=== PATIENT | female | born 1965 | race Caucasian/White ===

== ENCOUNTER → 2017-06-18 | Outpatient (CLI) | payer BC ==
[~2017-06-18] MED LIST: ALPR0.25 PO; CYCL-259 PO; FLUO40CA9 PO; HYDR-3237 PO; MONT10TA6 PO; TRAM-47 PO; ZOLP10TA PO
[2017-06-18 12:22] LABS: HEMATOCRIT 44.6 % (34.6-47.8); HEMOGLOBIN 15.2 g/dL (11.7-16.4); WHITE BLOOD COUNT 6.7 x10^3/uL (3.4-10)
[2017-06-18 12:37] LABS: BLOOD UREA NITROGEN 18 mg/dL (7-18)
[2017-06-18 12:43] LABS: ASPARTATE AMINO TRANSFERASE 20 U/L (15-37)
[2017-06-18 13:47] LABS: HIV 1&2 ANTIBODY SCREEN Nonreactive (Nonreactive); HIV-1 p24 ANTIGEN Nonreactive (Nonreactive)
== END | disposition home or self-care (01) ==
LOC: STAR 11:24
PROVIDERS: ATTEND Orthopaedic Surgery Orthopaedic Surgery of the Spine
DX: Z01.818 Encounter for other preprocedural examination (principal); M53.2X6 Spinal instabilities, lumbar region; M48.06 Spinal stenosis, lumbar region; R79.1 Abnormal coagulation profile
CPT/HCPCS: 36415; 71020; 80053; 80074; 81001; 85025; 85610; 85651; 85730; 86703; 87086; 87899; 93005; G0435

== ENCOUNTER 2017-06-29 07:30 | Inpatient (IN) | payer BC ==
[2017-06-18 11:47] VITALS: BP 109/79
[~2017-06-29] VITALS: Ht 170.2 cm; Wt 63.2 kg
[2017-07-06] MEDS ORDERED: LIDOCAINE/PF 1%, 30ML ONE (06:49)
[2017-07-06] MEDS ORDERED: GENTAMICIN 80 MG/2 ML ONE ×2 (06:49→10:30)
[2017-07-06] MEDS ORDERED: BUPIVACAINE/PF 0.5% ONE (06:49)
[2017-07-06] MEDS ORDERED: THROMBIN 5,000 UNIT VIAL TP ONE (06:49)
[2017-07-06] MEDS ORDERED: VANCOMYCIN 1,000 MG ONE (06:50)
[2017-07-06] MEDS ORDERED: morphine SULFATE/PF 1 MG/ML, 10ML ONE (06:50)
[2017-07-06] MEDS ORDERED: BACITRACIN 50,000 UNIT ONE (06:50)
[2017-07-06] MEDS ORDERED: FENTANYL PF 100 MCG/2ML ONE ×4 (06:50→16:38)
[2017-07-06] MEDS ORDERED: EPINEPHRINE 1 MG/ML, 1ML ONE (06:50)
[2017-07-06] MEDS ORDERED: LACTATED RINGERS 1,000 ML IV SCH (08:42)
[2017-07-06] MEDS ORDERED: GABAPENTIN PO (08:47)
[2017-07-06] MEDS ORDERED: ALBUTEROL INHALER INH (08:47)
[2017-07-06] MEDS ORDERED: LIDOCAINE 1%, 2ML SQ PRN (09:00)
[2017-07-06 09:24] LABS: HCG UR OBC PASS
[2017-07-06] MEDS ORDERED: HEPARIN 1,000 UNITS/ML, 30ML ONE (10:10)
[2017-07-06] MEDS ORDERED: PHENYLEPHRINE 10 MG/ML ONE (10:30)
[2017-07-06] MEDS ORDERED: CEFAZOLIN 1,000 MG ONE ×2 (10:30)
[2017-07-06] MEDS ORDERED: PROPOFOL 10 MG/ML, 20ML ONE (10:30)
[2017-07-06] MEDS ORDERED: METOCLOPRAMIDE 5 MG/ML, 2ML ONE (10:30)
[2017-07-06] MEDS ORDERED: DEXAMETHASONE 4 MG/ML, 1ML ONE (10:30)
[2017-07-06] MEDS ORDERED: PROPOFOL 10 MG/ML, 50ML ONE (10:30)
[2017-07-06] MEDS ORDERED: SUCCINYLCHOLINE 20 MG/ML, 10ML ONE (10:30)
[2017-07-06] MEDS ORDERED: ROCURONIUM 10 MG/ML ONE (10:30)
[2017-07-06] MEDS ORDERED: LIDOCAINE 2%, 10ML ONE (10:30)
[2017-07-06] MEDS ORDERED: KETAMINE 10 MG/ML, 20ML ONE (10:30)
[2017-07-06] MEDS ORDERED: SUFentanil 50 MCG/ML, 5ML ONE (10:30)
[2017-07-06] MEDS ORDERED: hydrALAzine 20 MG/ML, 1ML IV PRN (12:00)
[2017-07-06] MEDS ORDERED: OXYcodone 5 MG/5 ML ORAL.SOL UDC PO PRN (12:00)
[2017-07-06] MEDS ORDERED: LABETALOL 5MG/ML, 20ML IV PRN ×2 (12:00→19:30)
[2017-07-06] MEDS ORDERED: MEPERIDINE/PF 25MG/0.5ML IVPush PRN (12:00)
[2017-07-06] MEDS ORDERED: DIAZEPAM 5 MG/ML, 2ML IVPush PRN (12:00)
[2017-07-06] MEDS ORDERED: HYDROmorphone 1 MG/ML, 1ML IV PRN (12:00)
[2017-07-06] MEDS ORDERED: ACETAMINOPHEN 325 MG TABLET PO PRN (12:00)
[2017-07-06] MEDS ORDERED: ONDANSETRON 2MG/ML, 2ML IVPush PRN (12:00)
[2017-07-06] MEDS ORDERED: MIDAZOLAM 1 MG/ML, 2ML IV PRN (12:00)
[2017-07-06] MEDS ORDERED: PROMETHAZINE 25 MG/ML, 1ML IV PRN (12:00)
[2017-07-06] MEDS: FENTANYL PF 100 MCG/2ML IV PRN ×5 (16:24→17:13)
[2017-07-06] MEDS ORDERED: ACETAMINOPHEN 650 MG/20.3 ML UDC ONE (16:38)
[2017-07-06] MEDS ORDERED: HYDROmorphone 1 MG/ML, 1ML ONE (16:39)
[2017-07-06] MEDS: HYDROmorphone 5 MG, BUPIVACAINE/PF 0.5%, 30ML 62.5 ML in SODIUM CHLORIDE 0.9% 182.5 ML EPIDCONT SCH (17:13)
[2017-07-06 18:15] VITALS: BP 130/64
[2017-07-06] MEDS ORDERED: NALOXONE 0.4 MG/ML, 1ML IVPush PRN (19:00)
[2017-07-06] MEDS ORDERED: NALOXONE 0.4 MG/ML, 1ML IV PRN ×2 (19:00)
[2017-07-06] MEDS ORDERED: D5%-0.9% NACL+KCL 20MEQ 1,000 ML IV SCH (19:00)
[2017-07-06] MEDS ORDERED: DO NOT GIVE MC SCH (19:00)
[2017-07-06] MEDS ORDERED: DO NOT GIVE XX SCH ×2 (19:00)
[2017-07-06] MEDS ORDERED: EPHEDRINE 50 MG/ML, 1ML IVPush PRN (19:00)
[2017-07-06] MEDS ORDERED: NALBUPHINE 10 MG/ML, 1ML IV PRN (19:00)
[2017-07-06] MEDS ORDERED: PHARMACY MAY ADJ FOR RENAL FX MC PRN (19:00)
[2017-07-06] MEDS ORDERED: DIAZEPAM 5 MG TABLET PO PRN (19:30)
[2017-07-06] MEDS ORDERED: MAGNESIUM HYDROXIDE 8%, 30ML UDC PO PRN (19:30)
[2017-07-06] MEDS: METOCLOPRAMIDE 5 MG/ML, 2ML IVPush SCH ×2 (19:30→21:14)
[2017-07-06] MEDS ORDERED: BISACODYL 10 MG SUPP PR PRN (19:30)
[2017-07-06] MEDS ORDERED: PROMETHAZINE 25 MG/ML, 1ML IM PRN (19:30)
[2017-07-06] MEDS ORDERED: DIPHENHYDRAMINE 50 MG/ML, 1ML IM PRN (19:30)
[2017-07-06] MEDS ORDERED: HYDROmorphone 2 MG/ML, 1ML IM PRN (19:30)
[2017-07-06] MEDS ORDERED: DIPHENHYDRAMINE 50 MG/ML, 1ML IVPush PRN ×3 (19:30)
[2017-07-06] MEDS ORDERED: DIPHENHYDRAMINE 50 MG CAPSULE PO PRN (19:30)
[2017-07-06 19:55] VITALS: BP 95/48
[2017-07-06] MEDS: D5%-0.9% NACL+KCL 20MEQ 1,000 ML IV SCH (21:14)
[2017-07-06] MEDS: SODIUM CHLORIDE FLUSH 10ML SYR IVF SCH ×2 (21:14)
[2017-07-06] MEDS: CEFAZOLIN PMX 1GM/50ML 50 ML IVPB SCH (21:14)
[2017-07-06] MEDS ORDERED: ALBUTEROL SULFATE 2.5 MG/3 ML NPPB PRN (22:00)
[2017-07-06] MEDS: ZOLPIDEM 5MG TABLET PO PRN (23:21)
[2017-07-06] MEDS: MONTELUKAST 10 MG TABLET PO SCH (23:21)
[2017-07-06] MEDS: GABAPENTIN 300 MG CAPSULE PO SCH (23:21)
[2017-07-07 00:09] VITALS: BP 101/63
[2017-07-07 04:00] VITALS: BP 99/62
[2017-07-07] MEDS: METOCLOPRAMIDE 5 MG/ML, 2ML IVPush SCH ×2 (04:55→13:59)
[2017-07-07] MEDS: D5%-0.9% NACL+KCL 20MEQ 1,000 ML IV SCH ×3 (04:55→23:19)
[2017-07-07] MEDS: CEFAZOLIN PMX 1GM/50ML 50 ML IVPB SCH ×3 (04:55→22:33)
[2017-07-07 06:56] LABS: HEMATOCRIT 29.7 % (34.6-47.8); HEMOGLOBIN 10.2 g/dL (11.7-16.4)
[2017-07-07] MEDS: SODIUM CHLORIDE FLUSH 10ML SYR IVF SCH ×4 (07:38→21:00)
[2017-07-07] MEDS: SENNA/DOCUSATE TABLET PO SCH (07:50)
[2017-07-07] MEDS: GABAPENTIN 300 MG CAPSULE PO SCH ×2 (07:50→22:33)
[2017-07-07] MEDS: FLUOXETINE 20 MG CAPSULE PO SCH (07:50)
[2017-07-07 07:53] VITALS: BP 93/55
[2017-07-07 13:42] VITALS: BP 95/43
[2017-07-07 19:49] VITALS: BP 93/59
[2017-07-07] MEDS: DIPHENHYDRAMINE 25 MG CAPSULE PO PRN (21:03)
[2017-07-07] MEDS: ACETAMINOPHEN 500 MG TABLET PO PRN (21:03)
[2017-07-07] MEDS: MONTELUKAST 10 MG TABLET PO SCH (22:33)
[2017-07-07] MEDS: ZOLPIDEM 5MG TABLET PO PRN (23:19)
[2017-07-08 02:59] VITALS: BP 91/56
[2017-07-08] MEDS: DIPHENHYDRAMINE 25 MG CAPSULE PO PRN (03:40)
[2017-07-08] MEDS: ACETAMINOPHEN 500 MG TABLET PO PRN ×2 (03:40→15:53)
[2017-07-08] MEDS: CEFAZOLIN PMX 1GM/50ML 50 ML IVPB SCH ×3 (06:11→22:06)
[2017-07-08] MEDS: D5%-0.9% NACL+KCL 20MEQ 1,000 ML IV SCH ×2 (07:00→16:03)
[2017-07-08 08:29] VITALS: BP 92/56
[2017-07-08] MEDS: GABAPENTIN 300 MG CAPSULE PO SCH ×2 (08:51→20:54)
[2017-07-08] MEDS: SENNA/DOCUSATE TABLET PO SCH (08:51)
[2017-07-08] MEDS: FLUOXETINE 20 MG CAPSULE PO SCH (08:51)
[2017-07-08 09:00] LABS: HEMATOCRIT 30.1 % (34.6-47.8); HEMOGLOBIN 10.3 g/dL (11.7-16.4)
[2017-07-08] MEDS: SODIUM CHLORIDE FLUSH 10ML SYR IVF SCH ×4 (09:00→20:54)
[2017-07-08] MEDS: HYDROmorphone 5 MG, BUPIVACAINE/PF 0.5%, 30ML 62.5 ML in SODIUM CHLORIDE 0.9% 182.5 ML EPIDCONT SCH (11:39)
[2017-07-08 13:53] VITALS: BP 101/69
[2017-07-08 19:21] VITALS: BP 97/66
[2017-07-08] MEDS: MONTELUKAST 10 MG TABLET PO SCH (20:54)
[2017-07-09] MEDS: OXYcodone/APAP 10/325MG TABLET PO SCH ×3 (00:36→08:36)
[2017-07-09] MEDS: D5%-0.9% NACL+KCL 20MEQ 1,000 ML IV SCH (00:36)
[2017-07-09 01:31] VITALS: BP 102/70
[2017-07-09] MEDS: CEFAZOLIN PMX 1GM/50ML 50 ML IVPB SCH (05:33)
[2017-07-09] MEDS ORDERED: OXYC10TA6 PO (07:58)
[2017-07-09 08:30] VITALS: BP 109/73
[2017-07-09] MEDS: SENNA/DOCUSATE TABLET PO SCH (08:36)
[2017-07-09] MEDS: FLUOXETINE 20 MG CAPSULE PO SCH (08:36)
[2017-07-09] MEDS: GABAPENTIN 300 MG CAPSULE PO SCH (08:36)
[2017-07-09 08:40] LABS: HEMATOCRIT 35.4 % (34.6-47.8); HEMOGLOBIN 12.1 g/dL (11.7-16.4)
== END 2017-07-09 09:00 | disposition home or self-care (01) | DRG 460 ==
LOC: ORIP 07-06 08:00 → 3WST 07-06 18:15 → 4NOR 07-07 18:39
PROVIDERS: ADMIT Orthopaedic Surgery Orthopaedic Surgery of the Spine; ATTEND Orthopaedic Surgery Orthopaedic Surgery of the Spine
PROC: 0SG10A1 (ICD-10-PCS; 2017-07-06)
PROC: 0SG30J1 Fusion of Lumbosacral Joint with Synthetic Substitute, Posterior Approach, Posterior Column, Open Approach (ICD-10-PCS; 2017-07-06)
PROC: 01NB0ZZ Release Lumbar Nerve, Open Approach (ICD-10-PCS; 2017-07-06)
PROC: 4A11X4G Monitoring of Peripheral Nervous Electrical Activity, Intraoperative, External Approach (ICD-10-PCS; 2017-07-06)
PROC: 0QB30ZZ Excision of Left Pelvic Bone, Open Approach (ICD-10-PCS; principal; 2017-07-06 10:00)
DX: M48.06 Spinal stenosis, lumbar region (principal); J45.909 Unspecified asthma, uncomplicated; M54.16 Radiculopathy, lumbar region; Z98.1 Arthrodesis status; Z88.8 Allergy status to other drugs, medicaments and biological substances
CPT/HCPCS: 36415; 72100; 81025; 82962; 85014; 85018; 86850; 86900; 86923; C1713; C1776; J0171; J0690; J1100; J1170; J1644; J2274; J2704; J3010; J3360; J3370; J3490; C1751; C1762; C1894; J0330; J1580; J2370; J2765; J3480; J7050; J7120; Q0163